=== PATIENT | female | born 1940 | race Caucasian/White ===

== ENCOUNTER → 2023-02-03 | Outpatient (CLI) | payer MEDICARE ==
--- NOTE | 2023-02-03 18:09 | Diagnostic Imaging Report ---
WRIST, BILAT, 3 VIEWS OR MORE INDICATION: Bilateral wrist pain. COMPARISON: None available. TECHNIQUE: Three views of each wrist for a total of six views. FINDINGS: There are a few scattered intraosseous cysts within the left carpal bones. The left scapholunate interval is widened. No abnormal angulation of the lunate on either side. No features of avascular necrosis of either of the lunate bones. Joint spaces are preserved. No cartilage calcifications. No fracture. Mild degenerative changes of the thumb CMC on both sides. IMPRESSION: 1. Suggestion of left-sided scapholunate ligament injury. No associated malalignment of the lunate. 2. Cystic change scattered throughout the carpal bones on the left are likely degenerative in nature. Dictated by: Dictated on workstation # [id number]
== END ==
LOC: ORTHO 10:00
PROVIDERS: ATTEND Orthopaedic Surgery
DX: M85.68 Other cyst of bone, other site (principal); M25.531 Pain in right wrist
CPT/HCPCS: 73110; G0463; 99203

== ENCOUNTER → 2023-05-19 | Outpatient (CLI) | payer MEDICARE ==
[~2023-05-19] MED LIST: ASPI-999 PO; CALC-794 PO; CHOL200074 PO; DOCU-26 PO; FERR-84 PO; LISI10TA25 PO; LORA-1389 PO; NFPREMP0.3 PO; PANT20TA18 PO; SIMV40TA25 PO
== END ==
LOC: ORTHO 09:49
PROVIDERS: ATTEND Orthopaedic Surgery
DX: G56.03 Carpal tunnel syndrome, bilateral upper limbs (principal)

== ENCOUNTER 2023-05-21 05:31 | Outpatient (CLI) | payer MEDICARE ==
[~2023-05-21] VITALS: Ht 157.5 cm; Wt 71.1 kg
[2023-05-21] MEDS ORDERED: PANT20TA18 PO (10:15)
[2023-05-21] MEDS ORDERED: CHOL200074 PO (10:15)
[2023-05-21] MEDS ORDERED: SIMV40TA25 PO (10:15)
[2023-05-21] MEDS ORDERED: LISI10TA25 PO (10:15)
[2023-05-21] MEDS ORDERED: FERR-84 PO (10:15)
[2023-05-21] MEDS ORDERED: DOCU-26 PO (10:15)
[2023-05-21] MEDS ORDERED: NFPREMP0.3 PO (10:15)
[2023-05-21] MEDS ORDERED: CALC-794 PO (10:15)
[2023-05-21] MEDS ORDERED: ASPI-999 PO (10:15)
[2023-05-21] MEDS ORDERED: LORA-1389 PO (10:15)
== END 2023-05-21 10:17 ==
LOC: PREOP 05:31
PROVIDERS: ATTEND Orthopaedic Surgery
DX: Z01.818 Encounter for other preprocedural examination (principal)

== ENCOUNTER → 2023-06-15 | Outpatient (CLI) | payer MEDICARE ==
[~2023-06-15] MED LIST changes: +TRM50T PO
== END ==
LOC: ORTHO 11:38
PROVIDERS: ATTEND Orthopaedic Surgery
DX: Z47.89 Encounter for other orthopedic aftercare (principal)